=== PATIENT | female | born 1960 | race Caucasian/White ===

== ENCOUNTER 2023-07-09 12:56 | Oncology outpatient (recurring) (ONCR) | payer OTHER, SELFPAY ==
--- NOTE | 2023-06-24 15:22 | N.ONRAD NP_ITS ---
Radiation Oncology New Patient Visit Patient: Suzanna Shearer MR#: [id number] : 1960> Age: 62> Sex: Female> Dictated by: Dr. Suzanna Shearer Date of Service: 06/24/2023 Referring Physician(s) : Diagnosis: Stage III osteoarthritis of the hips, knees, hands, and spine Radiotherapy to date: Summary > No prior radiation therapy. Chief Complaint / History of Present Illness: Patient is a 62-year-old female who has had a longstanding history over the last 10 years of increasing joint pain along with decreased mobility and morning stiffness. Over the last year she is taken to walking with a cane or walking stick 90% of the time when on an uneven surface. She is unable to take NSAIDs due to gastritis and GERD. She is managed with tramadol which she has been on for several decades for fibromyalgia. The tramadol has no effect on her joint pain and stiffness. In the last 6 months she has gotten to where she cannot put on her shoe or sock without help. She is unable to wash her feet without help. She is unable to get up and down off the floor secondary to pain in her knees. She has difficulty some days at work with using the mouse because of the arthritis in her wrist and thumb. She has over the years had multiple injections in her spine and shoulders for arthritic symptoms. These were short-lived and no longer work. She is here today to discuss low-dose radiotherapy for osteoarthritis. 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 Non-smoker nondrinker Current Complaints / Review of Systems: . Pain in the wrist and hand, bilateral hip pain, right sided knee pain, low back and mid thoracic neck pain Vital Signs: Performed on 06/24/2023 2:27 PM BMI - 31.854 kg/m2 (high), Height - 70 in, Weight - 222 lbs, Temperature - 97.8 f, Pulse - 80 /min, Respiration - 16 /min, O2 Sat - 99 %, Pain - 8, Fatigue - 5 and BP - 125/ 85 mm(hg). Physical Exam: No acute signs of infection in any joint or location. Decreased range of motion in the wrists and thumb as well as in the knees and hips and spine. Performance Status: 80 Pathology: Lab: Imaging: See HPI Impression: Osteoarthritis stage III Plan: At this point we will proceed with low-dose radiation for osteoarthritis to the right hand, followed by the right knee, left hip, low back, and left hand. Signed by: 06/25/2023 9:08:41 AM <<Signature on File>> Time spent with patient:45 CPT Code: CPT Code:
--- NOTE | 2023-07-07 08:46 | ONCRAD TMN_ITS ---
Radiation Oncology Weekly Treatment Management Patient: Suzanna Shearer MR#: [id number] : 1960 Attending Physician: Dr. Suzanna Shearer Date of Service: 07/07/2023 Fractions: 3 out of 6 Referring Physician(s) : Diagnosis: M19.041 - Primary osteoarthritis, right hand, Diagnosed 06/24/2023 (Active) Radiotherapy to date: Course: right hand/wrist, Treatment Site: RT Hand 2023, Ref. ID: [id number], Energy: 6X, Dose/Fx (cGy): 50, #Fx: 3 / 6, Dose Correction (cGy): 0, Total Dose Delivered (cGy): 150, Start Date: 07/01/2023, Elapsed Days: 6 Reason for visit: The patient is being seen today as part of their regularly scheduled weekly on treatment visits to assess for acute toxicities from radiotherapy. Review of Systems: The discomfort in my wrist and thumb has resolved. I was able to hold my iPad all weekend in my right hand without having any discomfort. The swelling has also gone down in the wrist. Vital Signs: Performed on 07/07/2023 8:34 AM BMI - 31.854 kg/m2 (high), Height - 70 in, Weight - 222 lbs, Temperature - 97.8 f, Pulse - 80 /min, Respiration - 16 /min, O2 Sat - 99 %, Pain - 0, Fatigue - 2 and BP - 125/ 85 mm(hg). Physical Exam: On examination I continue to have the hyperkeratosis of the palm with dry skin. Otherwise there are no changes. Imaging: Radiation therapy imaging related to accurate target localization (i.e. KV, MV and CBCT) was reviewed. Appropriate changes, if any, were made to ensure treatment accuracy. Plan: I will go ahead and complete my treatments this week with a second treatment today and 1 on Thursday and the final on . Signed by: Dr. Suzanna Shearer 07/07/2023 8:44:14 AM
--- NOTE | 2023-07-09 15:09 | N.ONRD TS_ITS ---
Radiation Oncology Treatment Summary Patient: Suzanna Shearer MR#: [id number] : 1960 Age: 62Sex: Female Dictated by: Dr. Suzanna Shearer Date of Service: 07/09/2023 Referring Physician(s) : Diagnosis: M19.041 - Primary osteoarthritis, right hand, Diagnosed 06/24/2023 (Active) Radiotherapy to Date: Course: right hand/wrist, Treatment Site: RT Hand 2023, Ref. ID: [id number], Energy: 6X, Dose/Fx (cGy): 50, #Fx: 6 / 6, Dose Correction (cGy): 0, Total Dose Delivered (cGy): 300, Start Date: 07/01/2023, End Date: 07/09/2023, Elapsed Days: 8 Clinical Summary: The patient tolerated RT well. I noticed no acute changes. By just 3 treatments the pain in my thumb and fingers had decreased substantially. Plan: End of treatment today. Continue on the above medication until the skin reaction resolves. Follow up in one month. Signed by: Dr. Suzanna Shearer>07/09/2023 3:08:12 PM <<Signature on File>>
== END 2023-07-09 23:59 | disposition home or self-care (01) ==
PROVIDERS: PCP Emergency Medicine; Visit Provider Radiology Radiation Oncology
DX: Z53.9 Procedure and treatment not carried out, unspecified reason (principal)
CPT/HCPCS: 77263; 77290; 77295; 77300; 77334; 77336; 77387; 77412; 77427; G6002

== ENCOUNTER 2023-10-13 10:17 | Outpatient (RCR) | payer BC, SELFPAY | END 2023-10-14 23:59 | disposition home or self-care (01) | LOC: SPT 10:17 | PROVIDERS: Visit Provider Orthopaedic Surgery | DX: Z47.1 Aftercare following joint replacement surgery (principal); Z96.641 Presence of right artificial hip joint | CPT/HCPCS: 97161 ==

== ENCOUNTER 2024-01-27 08:24 | Oncology outpatient (recurring) (ONCR) | payer BC, SELFPAY ==
--- OUTSIDE RECORDS SUMMARY | 2024-01-27 08:27 | XMS_ITS ---
Author Name Unknown Organization [facility] Address [address] [place] [address] Care Team Providers Care Reference Assistant Name Role Phone None, None Primary Care Provider Paris Arriaza Unavailable [phone] Luna Goodson [phone] Encounters Encounter Location Date Provider Diagnosis [facility] [address] [place] [address] 12/25/2023 Luna Goodson Plan Of Treatment Next Appt Details Provider Name:Guerda cohenNataliaBowser, 03/22/2024 11:00:00 AM, [address], [place], [address], Progress Notes * Suzanna SHEARER LDOB: (63 yo F)Acc No.[id number]:12/25/2023 Progress Notes Patient:?Suzanna SHEARER Provider:?Luna Goosdon MD :1960???Age:63 Y???Sex:Female D ate:12/25/2023 Address:[address] [place] [address], [id number] Subjective: * Chief Complaints: * ??? * Medical History:? Objective: * Vitals:? Assessment: Plan: * Treatment: Forms: * Billing Information: * Visit Code:? * Procedure Codes:? 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
== END 2024-02-13 23:59 | disposition home or self-care (01) ==
LOC: ONCMED 08:25
PROVIDERS: Visit Provider Radiology Radiation Oncology
DX: M79.7 Fibromyalgia (principal); R53.83 Other fatigue
CPT/HCPCS: 36415

== ENCOUNTER 2024-06-13 14:38 | Oncology outpatient (recurring) (ONCR) | payer OTHER, SELFPAY ==
--- NOTE | 2024-06-02 22:05 | ONCRAD EPV_ITS ---
Radiation Oncology Established Patient Visit Patient: Manfred Briseno [id number] : 1960> Age: 63> Sex: Female> Dictated by: Dr. Ridge Artis Date of Service: 06/02/2024 Referring Physician(s) : Diagnosis: M19.041 - Primary osteoarthritis, right hand, Diagnosed 06/24/2023 (Active) Radiotherapy to Date: Course: right hand/wrist, Treatment Site: RT Hand 2023, Ref. ID: [id number], Energy: 6X, Dose/Fx (cGy): 50, #Fx: 6 / 6, Dose Correction (cGy): 0, Total Dose Delivered (cGy): 300, Start Date: 07/01/2023, End Date: 07/09/2023, Elapsed Days: 8, Current History: Previous treatment 11 months ago had good symptomatic relief of arthritic pain. Now it has recurred and recurred in distal finger joints which were not previous well covered in the initial treatment. She is also intolerant of oral or topical NSAID thus making low dose radiation appropriate for her need for durable pain control. Current Complaints / Review of Systems: . Vital Signs: Performed on 06/02/2024 3:20 PM BMI - 27.98 kg/m2 (high), Height - 70 in, Weight - 195 lbs, Temperature - 97.6 f, Pulse - 77 /min, Respiration - 16 /min, O2 Sat - 99 %, Pain - 8, Fatigue - 0 and BP - 120/ 85 mm(hg). Physical Exam: General: Alert and oriented x 3. No acute distress. Performance Status: ECOG PS 0 Lab: None pending. Pathology: Primary, m19.041 - primary osteoarthritis, right hand, Diagnosed 06/24/2023 (active) . Imaging: None Impression: Recurrent osteoarthritis of the right hand previously responsive to low dose treatment to 3 Gy delivered in 06/2023. Plan on retreatment with improved coverage of distal finger joints. Signed by: 06/02/2024 10:04:44 PM <<Signature on File>> Telemedicine Consent Patient seen today via Telemedicine by agreement and consent of patient. Telemedicine technology used during the visit include audio and, as available, review of images. This patient encounter is appropriate and reasonable under the circumstances given the patient???s particular presentation at this time. The patient has been advised of the potential risks and limitations of this mode of treatment (including but not limited to the absence of in-person examination) and has agreed to be treated in a remote fashion in spite of them. Any and all of the patient???s/patient???s family???s questions on this issue have been answered and I have made no promises or guarantees to the patient. The patient has also been advised to contact this office for worsening conditions or problems, and seek emergency medical treatment and/or call 911 if the patient deems either necessary. Time spent with patient: CPT Code: * CPT Code: *
--- NOTE | 2024-06-13 21:29 | ONCRAD TMN_ITS ---
Radiation Oncology Weekly Treatment Management Patient: Manfred Vang MR#: [id number] : 1960> Attending Physician: Dr. Ridge Artis Date of Service: 06/13/2024 Referring Physician(s) : Diagnosis: M19.041 - Primary osteoarthritis, right hand, Diagnosed 06/24/2023 (Active) Radiotherapy to date: Course: right hand/wrist, Treatment Site: RT Hand 2023, Ref. ID: [id number], Energy: 6X, Dose/Fx (cGy): 50, #Fx: 6 / 6, Dose Correction (cGy): 0, Total Dose Delivered (cGy): 300, Start Date: 07/01/2023, End Date: 07/09/2023, Elapsed Days: 8 Course: right hand/wrist, Treatment Site: RT Hand 2024, Ref. ID: [id number], Energy: 6X, Dose/Fx (cGy): 50, #Fx: 4 / 6, Dose Correction (cGy): 0, Total Dose Delivered (cGy): 200, Start Date: 06/07/2024, Elapsed Days: 6 Reason for visit: The patient is being seen today as part of their regularly scheduled weekly on treatment visits to assess for acute toxicities from radiotherapy. Review of Systems: She is tolerating treatment well. Fully active with no symptoms. Arthritic pain in hands has already resolved. Vital Signs: Performed on 06/13/2024 1:58 PM BMI - 27.98 kg/m2 (high), Height - 70 in, Weight - 195 lbs, Temperature - 97.5 f, Pulse - 78 /min, Respiration - 16 /min, O2 Sat - 98 %, Pain - 0, Fatigue - 0 and BP - 123/ 84 mm(hg). Physical Exam: Omitted Imaging: Radiation therapy imaging related to accurate target localization (i.e. KV, MV and CBCT) was reviewed. Appropriate changes, if any, were made to ensure treatment accuracy. Plan: Good tolerance and nice early response to low dose radiation for osteoarthritis. Continue treatment as planned. Signed by: Dr. Ridge Artis 06/13/2024 9:28:07 PM Telemedicine Consent Patient seen today via Telemedicine by agreement and consent of patient. Telemedicine technology used during the visit include audio and, as available, review of images. This patient encounter is appropriate and reasonable under the circumstances given the patient???s particular presentation at this time. The patient has been advised of the potential risks and limitations of this mode of treatment (including but not limited to the absence of in-person examination) and has agreed to be treated in a remote fashion in spite of them. Any and all of the patient???s/patient???s family???s questions on this issue have been answered and I have made no promises or guarantees to the patient. The patient has also been advised to contact this office for worsening conditions or problems, and seek emergency medical treatment and/or call 911 if the patient deems either necessary
== END 2024-06-13 23:59 | disposition home or self-care (01) ==
PROVIDERS: Visit Provider Radiology Radiation Oncology
DX: M19.041 Primary osteoarthritis, right hand (principal)
CPT/HCPCS: 77295; 77300; 77334; 77387; 77412; G6002

== ENCOUNTER 2024-06-15 14:11 | Oncology outpatient (recurring) (ONCR) | payer OTHER, SELFPAY | END 2024-07-13 23:59 | disposition home or self-care (01) | PROVIDERS: Visit Provider Radiology Radiation Oncology | DX: M19.041 Primary osteoarthritis, right hand (principal) | CPT/HCPCS: 77336; 77387; 77412 ==

== ENCOUNTER 2024-12-19 14:02 | Outpatient (CLI) | payer OTHER, SELFPAY ==
--- NOTE | 2024-12-19 14:05 | MM_ITS ---
WS: [id number] BILATERAL 3D TOMOSYNTHESIS DIGITAL SCREENING MAMMOGRAPHY WITH CAD CLINICAL INFORMATION: SCREENING HISTORY: Screening mammogram. No current complaints. COMPARISON: 2020 outside mammogram TECHNIQUE: Bilateral CC and MLO views. FINDINGS: The breasts are composed of heterogeneous fibroglandular density tissue, which can limit the detection of small underlying mass lesions. No suspicious mass, asymmetry, calcifications, or architectural distortion. No evidence of malignancy. Biopsy clip LEFT breast. Numerous tiny punctate calcifications anterior RIGHT greater than LEFT breast similar to previous. MM/MM [facility] tomosynthesis [id number] IMPRESSION: DENSITY: The breasts are heterogeneously dense, which may obscure small masses. BI-RADS: 2 - Benign FOLLOW UP: 1 Year Follow-up Recommend return to annual screening mammography.
== END 2024-12-19 14:03 | disposition home or self-care (01) ==
PROVIDERS: Visit Provider Radiology Radiation Oncology
DX: Z12.31 Encounter for screening mammogram for malignant neoplasm of breast (principal); R92.333 Mammographic heterogeneous density, bilateral breasts; R92.323 Mammographic fibroglandular density, bilateral breasts; R92.1 Mammographic calcification found on diagnostic imaging of breast; Z96.89 Presence of other specified functional implants
CPT/HCPCS: 77063; 77067

== ENCOUNTER 2025-01-16 13:28 | Oncology outpatient (recurring) (ONCR) | payer OTHER, SELFPAY ==
[2024-01-27 09:00] LABS: Hematocrit 46.4 % (36-47); Hemoglobin 15.40 g/dL (11.27-16.99); Mean Corpuscular HGB Conc 33.2 g/dL (30-55); Mean Corpuscular Hemoglobin 28.6 pg (27-33); Mean Corpuscular Volume 86.1 fl (85-98); Nucleated Red Blood Cells % 0 %; Platelet Count 260 10^3/cmm (157-399); Red Blood Count 5.39 10^6/uL (3.85-5.65); White Blood Count 7.32 10^3/uL (3.29-11.43)
[2024-01-27 09:25] LABS: Alanine Aminotransferase 27 U/L (0-33); Albumin Level 4.6 g/dL (3.5-5.2); Alkaline Phosphatase 71 U/L (35-105); Anion Gap 14.2 (5-19); Aspartate Amino Transferase 25 U/L (0-32); Blood Urea Nitrogen 11 mg/dL (8-23); Calcium 9.7 mg/dL (8.5-10.5); Carbon Dioxide 28 mmol/L (22-29); Chloride 100 mmol/L (98-107); Globulin 1.8 g/dL (1.3-4.6); Glucose 107 mg/dL (65-115); Osmolality Calculated 286 mOsm/kg (285-295); Potassium 4.2 mmol/L (3.5-5.1); Sodium 138 mmol/L (136-145); Total Protein 6.4 g/dL (6.6-8.7)
[2024-01-27 09:38] LABS: Vitamin B12 891 pg/mL (232-1245)
[2024-02-02 18:15] LABS: Vit D 1,25 (Oh)2, Total 30 pg/mL (18-72); Vit D2 1,25 (Oh)2 <8 pg/mL; Vit D3 1,25 (Oh)2 30 pg/mL
[2025-01-16 14:13] LABS: Hematocrit 45.4 % (36-47); Hemoglobin 15.10 g/dL (11.27-16.99); Mean Corpuscular HGB Conc 33.3 g/dL (30-55); Mean Corpuscular Hemoglobin 29.3 pg (27-33); Mean Corpuscular Volume 88.0 fl (85-98); Nucleated Red Blood Cells % 0 %; Platelet Count 284 10^3/cmm (157-399); Red Blood Count 5.16 10^6/uL (3.85-5.65); White Blood Count 7.58 10^3/uL (3.29-11.43)
[2025-01-16 14:32] LABS: Alanine Aminotransferase 25 U/L (0-33); Albumin Level 4.8 g/dL (3.5-5.2); Alkaline Phosphatase 69 U/L (35-105); Anion Gap 15.2 (5-19); Aspartate Amino Transferase 22 U/L (0-32); Blood Urea Nitrogen 12 mg/dL (8-23); Calcium 9.6 mg/dL (8.5-10.5); Carbon Dioxide 27 mmol/L (22-29); Chloride 100 mmol/L (98-107); Globulin 2.5 g/dL (1.3-4.6); Glucose 129 mg/dL (65-115); Osmolality Calculated 287 mOsm/kg (285-295); Potassium 4.2 mmol/L (3.5-5.1); Sodium 138 mmol/L (136-145); Total Protein 7.3 g/dL (6.6-8.7)
== END 2025-02-12 23:59 | disposition home or self-care (01) ==
PROVIDERS: Radiology Radiation Oncology; Visit Provider Radiology Radiation Oncology
DX: M15.9 Polyosteoarthritis, unspecified (principal); E55.9 Vitamin D deficiency, unspecified; M50.30 Other cervical disc degeneration, unspecified cervical region; M79.7 Fibromyalgia; E03.9 Hypothyroidism, unspecified; G43.909 Migraine, unspecified, not intractable, without status migrainosus; R53.83 Other fatigue
CPT/HCPCS: 36415; 80053; 82306; 82607; 82652; 85025; 85651

== ENCOUNTER 2025-02-15 15:42 | Outpatient (CLI) | payer OTHER, SELFPAY ==
--- NOTE | 2025-02-15 15:51 | XRR_ITS ---
PROCEDURE INFORMATION: Exam: XR Left Toe(s) Exam date and time: 02/15/2025 4:02 PM Age: 64 years old Clinical indication: Injury or trauma; Other: Dropped tree on toe; Blunt trauma; Toes; Left; Injury details: Injuried lt big toe after dropping tree on it x few days. Swelling & brusing since injury. ; Additional info: Trauma to L big toe TECHNIQUE: Imaging protocol: Radiologic exam of the left toes. Views: Minimum 2 views. COMPARISON: No relevant prior studies available. FINDINGS: Bones/joints: Normal. Soft tissues: Normal. XR/XR toe LT min 2V [id number] IMPRESSION: A definitive fracture is not seen.
== END 2025-02-15 15:43 | disposition home or self-care (01) ==
LOC: RAD 15:44
PROVIDERS: Visit Provider Radiology Radiation Oncology
DX: S92.912A Unspecified fracture of left toe(s), initial encounter for closed fracture (principal); X58.XXXA Exposure to other specified factors, initial encounter
CPT/HCPCS: 73660